=== PATIENT | female | born 1990 | race Caucasian/White ===

== ENCOUNTER 2018-08-10 16:43 | Emergency (ER) | payer OTHER ==
--- NOTE | 2018-08-10 17:12 | ED ---
Complex/Multi-Sys Presentation - HPI Summary HPI Summary: Patient is a 27 y/o F presenting to ED with concerns of possible exposure of another person's blood to her eyes. She was working in [facility] [place] today when this incident occurred. Patient states that she is unsure if she was actually exposed to anything but wanted to be evaluated. She denies any abrasion but notes some pruritis of the eyes. Patient does not wear contacts. On triage, pain is denied, it is reported that patient did not flush eyes prior to arrival. Home medications and allergies are reviewed. - History Of Current Complaint Chief Complaint: EDExposureBodyFluid Time Seen by Provider: 08/10/18 17:03 Hx Obtained From: Patient Onset/Duration: Sudden Onset, Lasting Hours, Still Present Timing: Constant, Hours Severity Currently: None - pain denied Location: Pain At: - possible blood exposure to eyes Aggravating Factor(s): nothing Alleviating Factor(s): nothing Associated Signs And Symptoms: Positive: Other - possible blood exposure to eyes. Negative: Fever - Allergies/Home Medications Allergies/Adverse Reactions: Allergies Allergy/AdvReac Type Severity Reaction Status Date / Time No Known Allergies Allergy Verified 08/10/18 16:47 PMH/Surg Hx/FS Hx/Imm Hx Sensory History: Denies: Hx Legally Blind, Hx Deafness Opthamlomology History: Denies: Hx Legally Blind EENT History: Denies: Hx Deafness Infectious Disease History: No Infectious Disease History: Denies: Traveled Outside the [place] in Last 30 Days - Family History Known Family History: Positive: Hypertension, Diabetes - Social History Alcohol Use: Weekly Substance Use Type: Reports: None Smoking Status (MU): Never Smoked Tobacco Review of Systems Negative: Fever Positive: Other - possible exposure to blood of the eyes, reports some pruritis of the eyes All Other Systems Reviewed And Are Negative: Yes Physical Exam - Summary Physical Exam Summary: Appearance: The patient is well-nourished in no acute distress and in no acute pain. Skin: The skin is warm and dry and skin color reflects adequate perfusion. HEENT: The head is normocephalic and atraumatic. The pupils are equal and reactive. The conjunctivae are clear and without drainage. Nares are patent and without drainage. Mouth reveals moist mucous membranes and the throat is without erythema and exudate. The external ears are intact. The ear canals are patent and without drainage. The tympanic membranes are intact. Neck: The neck is supple with full range of motion and non-tender. There are no carotid bruits. There is no neck vein distension. Respiratory: Chest is non-tender. Lungs are clear to auscultation and breath sounds are symmetrical and equal. and Cardiovascular: Heart is regular rate and rhythm. There is no murmur or rub auscultated. There is no peripheral edema and pulses are symmetrical and equal. Abdomen: The abdomen is soft and non-tender. There are normal bowel sounds heard in all four quadrants and there is no organomegaly palpated. Musculoskeletal: There is no back tenderness noted. Extremities are non-tender with full range of motion. There is good capillary refill. There is no peripheral edema or calf tenderness elicited. Neurological: Patient is alert and oriented to person, place and time. The patient has symmetrical motor strength in all four extremities. Cranial nerves are grossly intact. Deep tendon reflexes are symmetrical and equal in all four extremities. Psychiatric: The patient has an appropriate affect and does not exhibit any anxiety or depression. Triage Information Reviewed: Yes Vital Signs On Initial Exam: Initial Vitals Temp Pulse Resp BP Pulse Ox 98.4 F 80 16 142/84 98 08/10/18 16:45 08/10/18 16:45 08/10/18 16:45 08/10/18 16:45 08/10/18 16:45 Vital Signs Reviewed: Yes Diagnostics - Vital Signs Vital Signs Temp Pulse Resp BP Pulse Ox 08/10/18 16:45 98.4 F 80 16 142/84 98 - Laboratory Result Diagrams: 08/10/18 17:51 08/10/18 17:51 Lab Statement: Any lab studies that have been ordered have been reviewed, and results considered in the medical decision making process. Re-Evaluation - Re-Evaluation First Eval Re-Evaluation Time: 19:43 Comment: Discussed results of labs and tests with patient. Patient to be discharged to home and follow up with Chelly Oshea, infection prevention nurse. She is agreeable with this plan. Complex Multi-Symp Course/Dx Course Of Treatment: Ms. Zarate came down from the floor a few hours after a possible bodily fluid exposure in the OR. The source patient had subsequently been discharged by the time I saw her. She is not sure if bloody saline solution got splashed in her eyes or not. She has no complaints of her eyes, with no previous corneal abrasion or injuries. Labs were drawn routinely. Because the source is unknown at this point the situation is complicated. It seems like a very unlikely transmission with miniscule chance. Nevertheless she was given the choice of prophylaxis with notification of the infection control nurse Maria Fernanda Oshea to attempt to get source blood on Monday when he comes back for dialysis. She chose prophylaxis and was given a seven-day course and recommendation to follow-up with Maria Fernanda Oshea on Monday. - Diagnoses Provider Diagnoses: Exposure to blood or body fluid Discharge - Sign-Out/Discharge Documenting (check all that apply): Patient Departure - discharge - Discharge Plan Condition: Stable Disposition: HOME Patient Education Materials: Body Substance Exposure (ED) Referrals: Chelly Oshea [Infection Prevention Nurse] - 2 Days Additional Instructions: RETURN TO ED FOR ANY NEW OR WORSENING SYMPTOMS. FOLLOW UP WITH CHELLY OSHEA IN 2-3 DAYS. - Billing Disposition and Condition Condition: STABLE Disposition: Home - Attestation Statements Document Initiated by Cat: Yes Documenting Scribe: RAMO VALLE Provider For Whom Cat is Documenting (Include Credential): CARLY LARIOS MD Scribe Attestation: RAMO Vaz , scribed for CARLY LARIOS MD on 08/10/18 at 2149. Scribe Documentation Reviewed: Yes Provider Attestation: The documentation as recorded by the RAMO steel accurately reflects the service I personally performed and the decisions made by me, CARLY LARIOS MD Status of Scribe Document: Viewed
[2018-08-10 18:00] LABS: ABS Basophils 0 10^3/ul (0-0.2); ABS Eosinophils 0 10^3/ul (0-0.6); ABS Lymphocytes 2.4 10^3/ul (1.0-4.8); ABS Monocytes 0.4 10^3/ul (0-0.8); ABS Neutrophils 6.4 10^3/ul (1.5-7.7); ABS Nucleated RBC 0 10^3/ul; Eosinophil % 0.5 %; Hematocrit 40 % (35-47); Hemoglobin 13.6 g/dl (12.0-16.0); Mean Corpuscular HGB Conc 34 g/dl (31-36); Mean Corpuscular Hemoglobin 29 pg (27-31); Mean Corpuscular Volume 84 fL (80-97); Mean Platelet Volume 9.8 fL (7.4-10.4); Nucleated Red Blood Cells % 0; Platelet Count 209 10^3/ul (150-450); Red Blood Count 4.76 10^6/ul (4.00-5.40); Red Cell Distribution Width 13 % (10.5-15); White Blood Count 9.3 10^3/ul (3.5-10.8)
[2018-08-10 18:32] LABS: EGFR Non-African American 92.7 (>60)
[2018-08-10] MEDS ORDERED: Raltegravir* 400 MG TAB PO ONE ×2 (19:37)
[2018-08-10] MEDS ORDERED: Tenofovir/Emtricitab 200/300 * TAB PO ONE ×2 (19:37)
[2018-08-10 20:58] VITALS: BP 140/98
== END 2018-08-10 20:50 | disposition home or self-care (01) ==
LOC: ED 16:43
DX: Z77.21 Contact with and (suspected) exposure to potentially hazardous body fluids (principal)
CPT/HCPCS: 36415; 80053; 84702; 85025; 86703; 86704; 86803; 87340; 99282